=== PATIENT | female | born 1970 | race Caucasian/White ===

== ENCOUNTER 2017-12-02 10:49 | Emergency (ER) | payer MEDICAID ==
[2017-12-02 11:01] VITALS: BMI 28.3
[2017-12-02 11:11] VITALS: RESP 18; O2SAT 100
[2017-12-02] MEDS ORDERED: Sodium Chloride 0.9% 1,000 ML IV STA (11:20)
[2017-12-02] MEDS ORDERED: Morphine 4 mg/ml ISec IVP STA ×2 (11:20→12:53)
--- NOTE | 2017-12-02 11:24 | ED PDOC ---
Arrival/HPI - General Chief Complaint: GI Problem Time Seen by Provider: 12/02/17 11:03 Historian: Patient - History of Present Illness Narrative History of Present Illness (Text): 12/02/17 11:21 Patient is a 47 year old female who presents with right lower back pain which started 2 days ago. Patient is primarily Sinhala speaking and agreed to have translate. Patient reports that her back pain is pulsating and radiates to the RLQ of her abdomen and right lower extremity. She also mentions experiencing a tingling sensation in her right lower extremity. Her pain is exacerbated with movement. She admits to experiencing nausea but denies any vomiting. Patient notes that she has experienced similar symptoms in the past and was told it was cholelithiasis. Patient has a history of constipation but had 2 loose bowel movements yesterday. She also mentions having a history of cyst formation on her chest. Patient denies fevers, chills, shortness of breath, chest pain, dyspnea on exertion, cough, headache, dizziness, neck pain, or any other complaint. Time/Duration: < week Symptom Onset: Sudden Quality: Throbbing (Pulsating) Context: Home Past Medical History - Provider Review Nursing Documentation Reviewed: Yes - Infectious Disease Hx of Infectious Diseases: None - Tetanus Immunization Tetanus Immunization: Unknown - Past Medical History Past Medical History: No Previous - Neurological Hx Migraine: Yes - Musculoskeletal/Rheumatological Hx Falls: No - Psychiatric Hx Psychophysiologic Disorder: Yes Hx Depression: Yes Hx Emotional Abuse: No Hx Physical Abuse: No Hx Substance Use: No - Past Surgical History Past Surgical History: No Previous - Surgical History Hx Section: Yes Hx Hysterectomy: Yes (october 2013) - Anesthesia Hx Anesthesia: Yes Hx Anesthesia Reactions: No Hx Malignant Hyperthermia: No - Suicidal Assessment Feels Threatened In Home Enviroment: No Family/Social History - Physician Review Nursing Documentation Reviewed: Yes Family/Social History: No Known Family HX Smoking Status: Light Smoker < 10 Cigarettes Daily Hx Alcohol Use: Yes Hx Substance Use: No Hx Substance Use Treatment: No Allergies/Home Meds Allergies/Adverse Reactions: Allergies Penicillins Allergy (Verified 12/02/17 11:03) ANAPHYLAXIS Review of Systems - Physician Review All systems were reviewed & negative as marked: Yes - Review of Systems Constitutional: absent: Fevers Respiratory: absent: SOB, Cough Cardiovascular: absent: Chest Pain, BYRD Gastrointestinal: Abdominal Pain, Nausea. absent: Vomiting Musculoskeletal: Back Pain (Radiating to right lower extremity) Neurological: absent: Headache, Dizziness Physical Exam Vital Signs Reviewed: Yes Vital Signs Temp Pulse Resp BP Pulse Ox 12/02/17 15:27 98.2 F 72 18 127/89 100 12/02/17 15:23 98.2 F 72 18 127/89 100 12/02/17 11:10 98.4 F 84 18 132/85 100 Temperature: Afebrile Blood Pressure: Normal Pulse: Regular Respiratory Rate: Normal Appearance: Positive for: Well-Appearing Mental Status: Positive for: Alert and Oriented X 3 - Systems Exam Head: Present: Atraumatic, Normocephalic Pupils: Present: PERRL Extroacular Muscles: Present: EOMI Conjunctiva: Present: Normal Mouth: Present: Moist Mucous Membranes Neck: Present: Normal Range of Motion Respiratory/Chest: Present: Clear to Auscultation, Good Air Exchange. No: Respiratory Distress, Accessory Muscle Use Cardiovascular: Present: Regular Rate and Rhythm, Normal S1, S2. No: Murmurs Abdomen: Present: Tenderness (RLQ tenderness). No: Distention, Peritoneal Signs Breast/Axillary: Present: Masses (1cm palpable mass on upper region of right breast), Other (Cruise Counselor present, nurse Leeann), Tender to Palpation (1cm palpable mass that is tender to palpation) Back: Present: Normal Inspection, CVA Tenderness (Right CVA tenderness), Pain with Leg Raise (Pain with raising right leg) Upper Extremity: Present: Normal Inspection. No: Cyanosis, Edema Lower Extremity: Present: Normal Inspection, Neurovascularly Intact. No: Edema Neurological: Present: GCS=15, CN II-XII Intact, Speech Normal, Motor Func Grossly Intact, Normal Sensory Function Skin: Present: Warm, Dry, Normal Color. No: Rashes Psychiatric: Present: Alert, Oriented x 3, Normal Insight, Normal Concentration Medical Decision Making ED Course and Treatment: 12/02/17 11:39 Impression: Patient is a 47 year old female who is experiencing pulsating right lower back pain radiating to her RLQ and right lower extremity. Differential Diagnosis included but are not limited to: Appendicitis vs. Kidney stones vs. Musculoskeletal strain Plan: -- Venous blood gas --Abdominal and pelvic CT without contrast --labs --Toradol --morphine --Zofran --Urinealysis --Urine test -- Reassess and disposition Prior Visits: Notes and results from previous visits were reviewed. Progress Notes: 12/02/17 12:[address] without contrast: Creator : Magnus Woodruff MD IMPRESSION: No acute intra-abdominal findings 12/02/17 16:[address] was negative. Labs reviewed. Abdomen soft and not tender. Negative Israel's sign. Negative McBurney's Sign. She has a little pain still on movement of her back. No abdomiinal pain. Patient is tolerating PO fluids. She then added that she has had back pain like this before after a fall. No weakness or numbness. She describes a tingling sensation down her right leg but that has improved since arrival. She is walking with no ataxia. She was given lidocaine patch for more pain control. She will f/u with her PMD and return to the ED if she has any worsening symptoms. In regards to the cyst on her right chest/upper breast she says she's had that since she was a child but she still will get it followed up with her PMD. - Lab Interpretations Lab Results: 12/02/17 11:12 12/02/17 11:12 Lab Results 12/02/17 12:19: pO2 22 L, VBG pH 7.36, VBG pCO2 53.0, VBG HCO3 29.9 H, VBG Total CO2 31.5 H, VBG O2 Sat (Calc) 55.2, VBG Base Excess 3.2 H, VBG Potassium 4.1, Glucose 110 H, Lactate 1.0, FiO2 21.0, Sodium 147.0, Chloride 113.0 H, Venous Blood Potassium 4.1 12/02/17 12:19: PT 11.8, INR 1.03, APTT 29.5 12/02/17 11:37: pO2 68 H, VBG pH 7.10 L*, VBG pCO2 80.0 H*, VBG HCO3 24.8, VBG Total CO2 27.3, VBG O2 Sat (Calc) 93.2 H, VBG Base Excess -6.6 L, VBG Potassium > 20.0 H*, Glucose 102, Lactate 1.9, FiO2 21.0, Sodium 132.0, Chloride 107.0, Venous Blood Potassium > 20.0 H* 12/02/17 11:12: Urine Color Yellow, Urine Appearance Clear, Urine pH 6.0, Ur Specific [place] 1.025, Urine Protein Negative, Urine Glucose (UA) Negative, Urine Ketones Negative, Urine Blood Trace-lysed H, Urine Nitrate Negative, Urine Bilirubin Negative, Urine Urobilinogen 0.2, Ur Leukocyte Esterase Negative , Urine RBC 1 - 3, Urine WBC 0 - 2, Ur Epithelial Cells 4 - 5, Urine Bacteria Few 12/02/17 11:12: Sodium 147, Potassium 3.7, Chloride 106, Carbon Dioxide 29, Anion Gap 15, BUN 13, Creatinine 0.8, Est GFR ( Amer) > 60, Est GFR (Non- Af Amer) > 60, Random Glucose 104, Calcium 9.4, Magnesium 2.1, Total Bilirubin 0.5, AST 33, ALT 58 H, Alkaline Phosphatase 99, Total Protein 7.5, Albumin 4.3, Globulin 3.2, Albumin/Globulin Ratio 1.3, Lipase 50 12/02/17 11:12: WBC 4.7, RBC 4.33, Hgb 12.9, Hct 38.5, MCV 88.9, MCH 29.8, MCHC 33.5, RDW 12.5, Plt Count 239, MPV 10.2, Gran % 45.5 L, Lymph % (Auto) 44.6 H, [place] % (Auto) 4.7, Eos % (Auto) 4.4, Baso % (Auto) 0.8, Gran # 2.15, Lymph # ( Auto) 2.1, [place] # (Auto) 0.2, Eos # (Auto) 0.2, Baso # (Auto) 0.04 I have reviewed the lab results: Yes - RAD Interpretation Radiology Orders: 12/02/17 11:20 ABD & PELVIS W/O PO OR IV CONT [CT] Stat 12/02/17 12:29 ABDOMEN COMPLETE [US] Stat End User Consultant: Radiologist - Medication Orders Current Medication Orders: Discontinued Medications Cyclobenzaprine HCl (Flexeril) 10 mg PO STAT STA Stop: 12/02/17 12:54 Last Admin: 12/02/17 13:06 Dose: 10 mg Diphenhydramine HCl (Benadryl) 25 mg IVP STAT STA Stop: 12/02/17 13:09 Last Admin: 12/02/17 13:11 Dose: 25 mg IVP Administration Document 12/02/17 13:11 HI (Rec: 12/02/17 13:11 HI [id number]) Charges for Administration # of IVP Administrations 1 Sodium Chloride (Sodium Chloride 0.9%) 1,000 mls @ 999 mls/hr IV .Q1H1M STA Stop: 12/02/17 12:20 Last Admin: 12/02/17 11:35 Dose: 999 mls/hr eMAR Start Stop Document 12/02/17 11:35 HI (Rec: 12/02/17 11:35 HI [id number]) Intravenous Solution Start Date 12/02/17 Start Time 11:35 Ketorolac Tromethamine (Toradol) 30 mg IVP STAT STA Stop: 12/02/17 11:21 Last Admin: 12/02/17 11:36 Dose: 30 mg MAR Pain Assessment Document 12/02/17 11:36 HI (Rec: 12/02/17 11:36 HI [id number]) Pain Reassessment Is this a pain reassessment? No Sleep Is patient sleeping during reassessment? No Presence of Pain Presence of Pain Yes Pain Scale Used Pain Scale Used Numeric Location Left, Right or Bilateral Right Description Description Constant Intensity of Pain at present 10 Acceptable Level of Pain 0 IVP Administration Document 12/02/17 11:36 HI (Rec: 12/02/17 11:36 HI [id number]) Charges for Administration # of IVP Administrations 1 Re-Assess: [facility] Pain Assessment Document 12/02/17 12:36 HI (Rec: 12/02/17 13:06 HI [id number]) Pain Reassessment Is this a pain reassessment? Yes Sleep Is patient sleeping during reassessment? No Presence of Pain Presence of Pain Yes Description Intensity of Pain at present 6 Lidocaine (Lidoderm) 1 ea TD STAT STA Stop: 12/02/17 14:13 Last Admin: 12/02/17 15:17 Dose: 1 ea MAR Transdermal Patch Site Document 12/02/17 15:17 HI (Rec: 12/02/17 15:21 HI [id number]) Transdermal Patch Site Transdermal Patch Site Right Lower Back Morphine Sulfate (Morphine) 4 mg IVP STAT STA Stop: 12/02/17 11:21 Last Admin: 06/13/18 11:36 Dose: 4 mg [facility] Pain Assessment Document 12/02/17 11:36 HI (Rec: 12/02/17 11:36 HI [id number]) Pain Reassessment Is this a pain reassessment? No Sleep Is patient sleeping during reassessment? No Presence of Pain Presence of Pain Yes Pain Scale Used Pain Scale Used Numeric Location Left, Right or Bilateral Right Upper or Lower Lower Pain Location Body Site Back Description Description Constant Intensity of Pain at present 10 Acceptable Level of Pain 0 IVP Administration Document 12/02/17 11:36 HI (Rec: 12/02/17 11:36 HI [id number]) Charges for Administration # of IVP Administrations 1 Re-Assess: [facility] Pain Assessment Document 12/02/17 12:36 HI (Rec: 12/02/17 13:06 HI [id number]) Pain Reassessment Is this a pain reassessment? Yes Sleep Is patient sleeping during reassessment? No Presence of Pain Presence of Pain Yes Description Intensity of Pain at present 6 Morphine Sulfate (Morphine) 4 mg IVP STAT STA Stop: 12/02/17 12:54 Last Admin: 12/02/17 13:05 Dose: 4 mg [facility] Pain Assessment Document 12/02/17 13:05 HI (Rec: 12/02/17 13:05 HI [id number]) Pain Reassessment Is this a pain reassessment? Yes Sleep Is patient sleeping during reassessment? No Presence of Pain Presence of Pain Yes Pain Scale Used Pain Scale Used Numeric Description Description Constant Intensity of Pain at present 9 Pain Behavior Moaning Crying Facial Grimacing IVP Administration Document 12/02/17 13:05 HI (Rec: 12/02/17 13:05 HI [id number]) Charges for Administration # of IVP Administrations 1 Re-Assess: [facility] Pain Assessment Document 12/02/17 14:05 HI (Rec: 12/02/17 15:22 HI [id number]) Pain Reassessment Is this a pain reassessment? Yes Sleep Is patient sleeping during reassessment? Yes Ondansetron HCl (Zofran Inj) 4 mg IVP STAT STA Stop: 12/02/17 11:21 Last Admin: 12/02/17 11:36 Dose: 4 mg IVP Administration Document 12/02/17 11:36 HI (Rec: 12/02/17 11:37 HI [id number]) Charges for Administration # of IVP Administrations 1 - Scribe Statement The provider has reviewed the documentation as recorded by the Scribe George Skyler Provider Scribe Attestation: All medical record entries made by the Scribe were at my direction and personally dictated by me. I have reviewed the chart and agree that the record accurately reflects my personal performance of the history, physical exam, medical decision making, and the department course for this patient. I have also personally directed, reviewed, and agree with the discharge instructions and disposition. Disposition/Present on Arrival - Present on Arrival Any Indicators Present on Arrival: No History of DVT/PE: No History of Uncontrolled Diabetes: No Urinary Catheter: No History of Decub. Ulcer: No History Surgical Site Infection Following: None - Disposition Have Diagnosis and Disposition been Completed?: Yes Diagnosis: Back pain, Sciatica Disposition: HOME/ ROUTINE Disposition Time: 15:27 Patient Plan: Discharge Condition: IMPROVED Additional Instructions: [facility], thank you for letting us take care of you today. Your provider was Aris Hinojosa DO and you were treated for Back Pain. The emergency medical care you received today was directed at your acute symptoms. If you were prescribed any medication, please fill it and take as directed. It may take several days for your symptoms to resolve. Return to the Emergency Department if your symptoms worsen, do not improve, or if you have any other problems. Please contact your doctor or call one of the physicians/clinics you have been referred to that are listed on the Patient Visit Information form that is included in your discharge packet. Bring any paperwork you were given at discharge with you along with any medications you are taking to your follow up visit. Our treatment cannot replace ongoing medical care by a primary care provider outside of the emergency department. Thank you for allowing the [facility] team to be part of your care today. If you had an X-Ray or CT scan: A Radiologist will review the ED reading if any change in treatment is needed we will contact you. If you had a blood, urine, or wound culture: It will take several days for the results, if any change in treatment is needed we will contact you. If you had an STI test: It will take 48 hours for the results. Please call after 1 week if you have not heard back. Prescriptions: Cyclobenzaprine [Flexeril] 5 mg PO TID PRN #20 tab PRN Reason: Muscle Spasm Ibuprofen [Motrin] 600 mg PO Q6 PRN #30 tab PRN Reason: Pain, Moderate (4-7) Referrals: Denise Navarro DO [Primary Care Provider] - Follow up with primary Forms: [employer] ([place]ian), WORK NOTE
[2017-12-02 11:38] LABS: BASO # 0.04 K/mm3 (0.0-2.0); BASO % 0.8 % (0.0-3.0); EOS # 0.2 (0.0-0.7); EOS % 4.4 % (1.5-5.0); GRAN # 2.15 (1.4-6.5); GRAN % 45.5 % (50.0-68.0); HEMOGLOBIN 12.9 g/dL (12.0-16.0); LYMPH # 2.1 (1.2-3.4); LYMPH % 44.6 % (22.0-35.0); MEAN CELL VOLUME 88.9 fl (80.0-105.0); MEAN CORPUSCULAR HEMOGLOBIN 29.8 pg (25.0-35.0); MEAN CORPUSCULAR HGB CONC 33.5 g/dl (31.0-37.0); MEAN PLATELET VOLUME 10.2 fl (7.0-11.0); MONO # 0.2 (0.1-0.6); MONO % 4.7 % (1.0-6.0); RBC 4.33 10^6/uL (3.5-6.1); RED CELL DISTRIBUTION WIDTH 12.5 % (11.5-14.5); WHITE BLOOD COUNT 4.7 10^3/ul (4.5-11.0)
[2017-12-02 11:41] LABS: URINE BILIRUBIN NEGATIVE (NEGATIVE); URINE BLOOD TRACE-LYSED (NEGATIVE); URINE GLUCOSE (UA) NEGATIVE (NEGATIVE); URINE LEUKOCYTE ESTERASE NEGATIVE Leu/uL (NEGATIVE); URINE PROTEIN NEGATIVE mg/dL (<30 mg/dL); URINE UROBILINOGEN 0.2 E.U./dL (<1 E.U./dL)
[2017-12-02 11:45] LABS: VENOUS BLOOD GAS BASE EXCESS -6.6 mmol/L (0.0-2.0); VENOUS BLOOD GAS PO2 68 mm/Hg (30-55)
[2017-12-02 11:47] LABS: ALB/GLOB RATIO 1.3 (1.1-1.8); ALBUMIN 4.3 g/dL (3.0-4.8); ALT/SGPT 58 U/L (7-56); AST/SGOT 33 U/L (14-36); BLOOD UREA NITROGEN 13 mg/dL (7-21); CALCIUM 9.4 mg/dL (8.4-10.5); GFR AFRICAN-AMERICAN > 60; GFR NON-AFRICAN AMERICAN > 60; LIPASE 50 U/L (23-300); URINE APPEARANCE CLEAR (CLEAR); URINE COLOR YELLOW (YELLOW)
[2017-12-02 12:04] LABS: URINE BACTERIA FEW (NEG); URINE WBC 0 - 2 /hpf (0-6)
--- NOTE | 2017-12-02 12:25 | CT ---
PROCEDURE: CT Abdomen and Pelvis without intravenous contrast HISTORY: right flank pain r/o kidney stone r/o appy COMPARISON: None. TECHNIQUE: Without contrast.. Contrast dose: Radiation dose: Total exam DLP = 507 mGy-cm. This CT exam was performed using one or more of the following dose reduction techniques: Automated exposure control, adjustment of the mA and/or kV according to patient size, and/or use of iterative reconstruction technique. FINDINGS: LOWER THORAX: Unremarkable. LIVER: Unremarkable. No gross lesion or ductal dilatation. GALLBLADDER AND BILE DUCTS: Multiple gallstones. No inflammatory changes PANCREAS: Unremarkable. No gross lesion or ductal dilatation. SPLEEN: Unremarkable. ADRENALS: Unremarkable. No mass. KIDNEYS AND URETERS: Unremarkable. No hydronephrosis. No solid mass. VASCULATURE: Unremarkable. No aortic aneurysm. BOWEL: Unremarkable. No obstruction. No gross mural thickening. APPENDIX: Unremarkable. Normal appendix. PERITONEUM: Unremarkable. No free fluid. No free air. LYMPH NODES: Unremarkable. No enlarged lymph nodes. BLADDER: Unremarkable. REPRODUCTIVE: Hysterectomy BONES: No acute fracture. OTHER FINDINGS: None. IMPRESSION: No acute intra-abdominal findings
[2017-12-02 12:33] LABS: VENOUS BLOOD GAS BASE EXCESS 3.2 mmol/L (0.0-2.0); VENOUS BLOOD GAS PO2 22 mm/Hg (30-55); VENOUS BLOOD PH 7.36 (7.32-7.43)
[2017-12-02 12:57] LABS: INR 1.03 (0.93-1.08); PARTIAL THROMBOPLASTIN TIME 29.5 Seconds (25.1-36.5); PROTHROMBIN TIME 11.8 SECONDS (9.4-12.5)
[2017-12-02] MEDS ORDERED: DiphenhydrAMINE 50 mg/ml Inj IVP STA (13:08)
[2017-12-02] MEDS ORDERED: DiphenhydrAMINE 50 mg/ml Inj ONE (13:10)
--- NOTE | 2017-12-02 13:57 | US ---
HISTORY: abd pain r/o cholecysitis COMPARISON: None. TECHNIQUE: Sonographic evaluation of the abdomen. FINDINGS: LIVER: Measures 18.2 cm. Borderline increased echogenicity of the liver parenchyma. No mass. No intrahepatic bile duct dilatation. GALLBLADDER: Multiple gallstones. No gallbladder wall thickening or pericholecystic fluid. No positive Israel sign elicited per technologist's note COMMON BILE DUCT: Measures 5.6 mm. No stones. No dilatation. PANCREAS: Unremarkable as visualized. No mass. No ductal dilatation. RIGHT KIDNEY: Measures 11.5 x 4.4 x 4.3cm. Normal echogenicity. No calculus, mass, or hydronephrosis. LEFT KIDNEY: Measures 10.7 x 4.6 x 4.5cm. Normal echogenicity. No calculus, mass, or hydronephrosis. SPLEEN: Normal in size and contour. No mass. AORTA: No aneurysmal dilatation. IVC: Unremarkable. OTHER FINDINGS: None. IMPRESSION: Multiple gallstones. No secondary signs per imaging to suggest an acute cholecystitis. Clinical correlation and follow-up recommended
[2017-12-02] MEDS ORDERED: Lidocaine 5% Patch TD STA (14:12)
[2017-12-02 15:27] VITALS: BP 127/89; PULSE 72; TEMP 98.2
== END 2017-12-02 15:27 | disposition home or self-care (01) ==
LOC: ED 10:49
DX: M54.40 Lumbago with sciatica, unspecified side (principal)
CPT/HCPCS: 74176; 76700; 80053; 81001; 82803; 83690; 83735; 85025; 85610; 85730; 96374; 96375; 96376; 99285; J1200; J1885; J2270; J2405; J7030